=== PATIENT | male | born 1995 | race Caucasian/White ===

== ENCOUNTER 2017-03-13 18:32 | Emergency (ER) | payer OTHER ==
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
[2017-03-13] MEDS ORDERED: Silver Sulfadiazine 1% Crm 400 GM Jar TOP ONE (19:46)
[2017-03-13] MEDS ORDERED: Diphtheria,Pertussis(Acell),Tetanus Vaccine 0.5 ML SDV IM ONE (19:47)
[2017-03-13] MEDS ORDERED: Metoclopramide 10 MG/2 ML SDV IM ONE (20:45)
[2017-03-13] MEDS ORDERED: HYDROmorphone 1 MG/ML Syringe IM ONE (20:45)
[2017-03-13 22:22] VITALS: BP 135/61
--- NOTE | 2017-03-18 10:47 | CR ---
Right foot: Four views of the right foot were obtained. Soft tissue swelling is identified. Mildly comminuted fracture is identified within the proximal shaft and base of the third metatarsal. Nondisplaced fracture is noted within the base of the second metatarsal. No additional fracture is definitely appreciated. Impression: 1. Fractures within the second and third metatarsals as described above. 2. Soft tissue swelling. Diagnostic code #3
--- NOTE | 2017-03-18 10:47 | CR ---
Right ankle: Four views of the right ankle were obtained. Comparison: No previous study. Ankle mortise is symmetric. Fractures are partially visualized within the third and second metatarsals. No additional fracture or other bony abnormality is appreciated. Impression: 1. Metatarsal fractures are partially seen. Nothing acute is seen within the right ankle. Diagnostic code #3
== END 2017-03-13 22:12 | disposition home or self-care (01) ==
LOC: JD.ED 18:32
DX: S92.331A Displaced fracture of third metatarsal bone, right foot, initial encounter for closed fracture (principal); S92.324A Nondisplaced fracture of second metatarsal bone, right foot, initial encounter for closed fracture; S90.01XA Contusion of right ankle, initial encounter; S50.311A Abrasion of right elbow, initial encounter; S90.511A Abrasion, right ankle, initial encounter; S80.211A Abrasion, right knee, initial encounter; S20.412A Abrasion of left back wall of thorax, initial encounter; S20.411A Abrasion of right back wall of thorax, initial encounter; Z23 Encounter for immunization; V86.59XA Driver of other special all-terrain or other off-road motor vehicle injured in nontraffic accident, initial encounter
CPT/HCPCS: 29515; 73610; 73630; 90471; 90715; 96372; 99284; A9270; J1170; J2765

== ENCOUNTER 2018-08-06 19:48 | Emergency (ER) | payer BC, OTHER ==
[2018-08-06 19:59] VITALS: BP 151/81
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
[2018-08-06] MEDS ORDERED: predniSONE 20 MG Tab PO ONE (21:47)
[2018-08-06] MEDS ORDERED: Orphenadrine 100 MG Tab.ER PO STA (21:47)
== END 2018-08-06 22:04 | disposition home or self-care (01) ==
LOC: JD.ED 19:48
DX: G56.03 Carpal tunnel syndrome, bilateral upper limbs (principal)
CPT/HCPCS: 36415; 80053; 83735; 84443; 85025; 99284; A9270

== ENCOUNTER 2018-08-12 14:42 | Emergency (ER) | payer BC ==
[2018-08-12 15:07] VITALS: BP 120/68
--- NOTE | 2018-08-12 16:27 | MR ---
MRI cervical spine Technique: Gradient echo axial images were obtained from above the C2-C3 disc inferiorly to the C7-T1 disc. T1 and T2 weighted sagittal images were obtained. Comparison: No prior cervical spine imaging. Findings: Vertebral body heights and disc spaces are preserved. Very slight posterior disc bulging at C2-C3 and C3-C4 is noted. Mild disc bulging is seen at T2-T3. No central canal stenosis or neural foraminal stenosis is seen. Cervical cord shows no abnormal signal or mass. Impression: 1. Slight degenerative change as noted above. Diagnostic code #2
--- NOTE | 2018-08-12 19:27 | EDM.PDOC ---
ED HPI GENERAL MEDICAL PROBLEM - General Chief Complaint: Neurological Problem Stated Complaint: BOTH HANDS TINGLING/NUMB Time Seen by Provider: 08/12/18 15:05 Source of Information: Reports: Patient History Limitations: Reports: No Limitations - History of Present Illness INITIAL COMMENTS - FREE TEXT/NARRATIVE: The patient presents with bilateral numbness and tingling of both hands. He also has some weakness bilateral and shaking of his thumb. This all started about 3 weeks ago after he was on a snowmobiling trip. He says he does use his hands a lot at work. He is a heavy duty truck mechanic. He has no other symptoms like fever, chills, cough, chest pain, shortness of breath, abdominal pain, nausea and vomiting. He has no pain in his neck and did not hurt his neck. He was evaluated here by [facility]. Labs looked good and he was diagnosed with bilateral carpal tunnel syndrome. He was given cock up splints and steroids. He said they did not help. He went to his chiropractor and he did an adjustment and that did not help. [facility] and he said they laughed about the diagnosis and recommended he come here and get an MRI. He is frustrated when he talks to my nurse. He says he needs to work. He is not as frustrated when he talks to me he just is not convinced he has carpal tunnel syndrome. Onset: Gradual Duration: Week(s): (3) Location: Reports: Upper Extremity, Left, Upper Extremity, Right Quality: Reports: Ache Severity: Moderate Improves with: Reports: None Worsens with: Reports: None Associated Symptoms: Reports: No Other Symptoms - Related Data Allergies Allergy/AdvReac Type Severity Reaction Status Date / Time No Known Allergies Allergy Verified 08/06/18 19:59 Home Meds: Home Meds . [No Known Home Meds] 08/12/18 [History] Past Medical History Musculoskeletal History: Reports: Other (See Below) Other Musculoskeletal History: ribs, fingers, toes, collarbone Neurological History: Reports: Concussion - Past Surgical History GI Surgical History: Reports: Appendectomy Musculoskeletal Surgical History: Reports: Other (See Below) Social & Family History - Family History Family Medical History: Noncontributory - Tobacco Use Smoking Status *Q: Current Every Day Smoker Years of Tobacco use: 8 Packs/Tins Daily: 0.2 - Caffeine Use Caffeine Use: Reports: Coffee - Recreational Drug Use Recreational Drug Use: No - Living Situation & Occupation Living situation: Reports: Single Occupation: Employed ED ROS GENERAL - Review of Systems Review Of Systems: See Below Constitutional: Reports: No Symptoms HEENT: Reports: No Symptoms Respiratory: Reports: No Symptoms Cardiovascular: Reports: No Symptoms Endocrine: Reports: No Symptoms GI/Abdominal: Reports: No Symptoms : Reports: No Symptoms Musculoskeletal: Reports: Other (Bilateral arm pain, numbness and weakness) Neurological: Reports: Numbness (hands), Weakness (hands) ED EXAM, NEURO - Physical Exam Exam: See Below Exam Limited By: No Limitations General Appearance: Alert, No Apparent Distress Ears: Normal External Exam Nose: Normal Inspection Head Exam: Atraumatic, Normocephalic Neck: Normal Inspection, Supple, Non-Tender Respiratory/Chest: No Respiratory Distress, Lungs Clear, Normal Breath Sounds Cardiovascular: Regular Rate, Rhythm, No Edema, No Murmur GI/Abdominal: Soft, Non-Tender, No Organomegaly, No Mass Neurological: Alert, Oriented x 3, Other (Decreased sensation to both hands. Tingling in his hand when I tap on the median nerve to both hands. More numbness and tingling when I flex both wrists. He can bend at the wrist, touch thumb to little finger and spread his fingers.) Course - Vital Signs Last Recorded V/S: Last Vital Signs Temp 99.4 F 08/12/18 15:04 Pulse 62 08/12/18 15:04 Resp 20 08/12/18 15:04 BP 120/68 08/12/18 15:04 Pulse Ox 100 08/12/18 15:04 - Re-Assessments/Exams Free Text/Narrative Re-Assessment/Exam: 08/12/18 19:30 It appears he does have carpal tunnel syndrome. I was fortunate enough to get an MRI of his neck and it does show some mild degenerative changes but no other problems that would explain his symptoms. I feel he does have bilateral carpal tunnel syndrome. I recommend he wear the splints and follow up with Dr Mane. He should also get some rest. It does not sound like he can do that. Departure - Departure Time of Disposition: 19:35 Disposition: Home, Self-Care 01 Condition: Good Clinical Impression: Carpal tunnel syndrome Qualifiers: Laterality: bilateral Qualified Code(s): G56.03 - Carpal tunnel syndrome, bilateral upper limbs - Discharge Information *PRESCRIPTION DRUG MONITORING PROGRAM REVIEWED*: No *COPY OF PRESCRIPTION DRUG MONITORING REPORT IN PATIENT HERB: No Referrals: Therese Salomon MD [Primary Care Provider] - Suraj Mane MD [Physician] - 1 Week Additional Instructions: Wear the splints at night and during that day. Try to rest your arms as much as you can for the next couple of weeks. Follow up with Dr Maen. Please return if you are worse.
== END 2018-08-12 16:00 | disposition home or self-care (01) ==
LOC: JD.ED 14:42
DX: G56.03 Carpal tunnel syndrome, bilateral upper limbs (principal); F17.210 Nicotine dependence, cigarettes, uncomplicated
CPT/HCPCS: 72141; 72141-26; 99284-25

== ENCOUNTER 2019-01-13 18:09 | Emergency (ER) | payer BC | END 2019-01-13 18:44 | disposition left against medical advice (07) | LOC: JD.ED 18:09 | DX: Z53.21 Procedure and treatment not carried out due to patient leaving prior to being seen by health care provider (principal) ==

== ENCOUNTER 2019-10-02 06:19 | Day surgery (SDC) | payer BC, OTHER ==
[~2019-10-02 06:19] MED LIST: Lactated Ringers 1,000 ML IV SCH; Lidocaine 1%/Sod Bicarbonate in NS 8.4% 1 ML Syringe IDERM PRN; Sodium Chloride 0.9% 10 ML Syringe FLUSH PRN
[2019-10-02] MEDS ORDERED: Propofol 200 MG/20 ML SDV ONE ×2 (06:31→07:33)
[2019-10-02] MEDS ORDERED: fentaNYL 100 MCG/2 ML SDV ONE (06:32)
[2019-10-02] MEDS ORDERED: Midazolam 1 MG/ML 2 ML SDV ONE ×2 (06:32→07:15)
[2019-10-02] MEDS ORDERED: Bupivacaine 0.25% 10 ML SDV ONE (06:45)
--- NOTE | 2019-10-02 06:46 | PCM.PREANE ---
Preanesthetic Assessment - Procedure Proposed Procedure: bilateral carpal tunnel - Anesthesia/Transfusion/Family Hx Anesthesia History: Prior Anesthesia Without Reaction Family History of Anesthesia Reaction: No Transfusion History: No Prior Transfusion(s) - Review of Systems General: No Symptoms Pulmonary: No Symptoms Cardiovascular: No Symptoms Gastrointestinal: No Symptoms Neurological: No Symptoms Other: Reports: None - Physical Assessment NPO Status Date: 10/01/19 NPO Status Time: 23:55 Vital Signs: 110/82 65 99% 16 97.9 Height: 5 ft 11 in Weight: 75.659 kg ASA Class: 2 Mental Status: Alert & Oriented x3 Airway Class: Mallampati = 1 Dentition: Reports: Normal Dentition Thyro-Mental Finger Breadths: 3 Mouth Opening Finger Breadths: 3 ROM/Head Extension: Full Lungs: Clear to Auscultation, Normal Respiratory Effort Cardiovascular: Regular Rate, Regular Rhythm - Lab Values: Laboratory Last Values MRSA (PCR) Negative 09/22/19 13:12 - Allergies Allergies/Adverse Reactions: Allergies Allergy/AdvReac Type Severity Reaction Status Date / Time No Known Allergies Allergy Verified 09/29/19 11:33 - Blood Blood Available: No - Acknowledgements Anesthesia Type Planned: MAC Pt an Appropriate Candidate for the Planned Anesthesia: Yes Alternatives and Risks of Anesthesia Discussed w Pt/Guardian: Yes Pt/Guardian Understands and Agrees with Anesthesia Plan: Yes PreAnesthesia Questionnaire - Past Health History Medical/Surgical History: Denies Medical/Surgical History HEENT History: Reports: Allergic Rhinitis Cardiovascular History: Reports: None Respiratory History: Reports: None Gastrointestinal History: Reports: GERD Genitourinary History: Reports: None CLOTH TESTER History: Reports: None Musculoskeletal History: Reports: Other (See Below) Neurological History: Reports: Concussion Psychiatric History: Reports: None Endocrine/Metabolic History: Reports: None Hematologic History: Reports: None Immunologic History: Reports: None Oncologic (Cancer) History: Reports: None Dermatologic History: Reports: None - Past Surgical History Head Surgeries/Procedures: Reports: None HEENT Surgical History: Reports: None Cardiovascular Surgical History: Reports: None GI Surgical History: Reports: Appendectomy, Hernia, Inguinal Female Surgical History: Reports: None Male Surgical History: Reports: None Endocrine Surgical History: Reports: None Neurological Surgical History: Reports: None Musculoskeletal Surgical History: Reports: Other (See Below) Oncologic Surgical History: Reports: None Dermatological Surgical History: Reports: None - SUBSTANCE USE Tobacco Use Within Last Twelve Months: Snuff/Dip Second Hand Smoke Exposure: No Days Per Week of Alcohol Use: 1 (socially) Recreational Drug Use History: No - HOME MEDS Home Medications: Home Meds Acetaminophen/HYDROcodone [[place] 325-5 MG] 1 - 2 tab PO Q6H PRN #15 tablet 10/01 [Rx] - CURRENT (IN HOUSE) MEDS Current Meds: Current Medications Lactated Ringer's (Ringers, Lactated) 1,000 mls @ 125 mls/hr IV ASDIRECTED BAILEE Stop: 10/02/19 23:00 Lidocaine/Sodium Bicarbonate (Buffered Lidocaine 1% In Ns 8.4%) 0.25 ml IDERM ONETIME PRN PRN Reason: Prior to IV Start Stop: 10/02/19 18:00 Sodium Chloride (Saline Flush) 10 ml FLUSH ASDIRECTED PRN PRN Reason: Keep Vein Open Stop: 10/02/19 18:00 Discontinued Medications Fentanyl (Sublimaze) Confirm Administered Dose 100 mcg .ROUTE .STK-MED ONE Stop: 10/02/19 06:33 Midazolam HCl (Versed 1 Mg/Ml) Confirm Administered Dose 2 mg .ROUTE .STK-MED ONE Stop: 10/02/19 06:33 Propofol (Diprivan 20 Ml) Confirm Administered Dose 400 mg .ROUTE .STK-MED ONE Stop: 10/02/19 06:32
[2019-10-02] MEDS: Bupivacaine 0.25% 10 ML SDV ONE ×2 (07:28→07:36)
[2019-10-02] MEDS: Lidocaine 1% 30 ML SDV ONE ×2 (07:28→07:36)
[2019-10-02] MEDS ORDERED: Ketorolac 30 MG/ML SDV ONE (07:31)
--- NOTE | 2019-10-02 08:06 | PCM48HPAN ---
Post Anesthesia Note - EVALUATION WITHIN 48HRS OF ANESTHETIC Vital Signs in Normal Range: Yes Patient Participated in Evaluation: Yes Respiratory Function Stable: Yes Airway Patent: Yes Cardiovascular Function Stable: Yes Hydration Status Stable: Yes Pain Control Satisfactory: Yes Nausea and Vomiting Control Satisfactory: Yes Mental Status Recovered: Yes Vital Signs: Last Vital Signs Temp 97.9 F 10/02/19 06:25 Pulse 65 10/02/19 06:25 Resp 16 10/02/19 06:25 BP 110/82 10/02/19 06:25 Pulse Ox 99 10/02/19 06:25 135/84 98% 62 16 97.5
[2019-10-02 08:23] VITALS: PULSE 64
[2019-10-02] MEDS ORDERED: Acetaminophen/HYDROcodone 325-5 MG Tab PO PRN (09:04)
[2019-10-02 09:20] VITALS: BP 105/64
--- NOTE | 2019-10-05 06:56 | PCM.OPNOTE ---
- General Post-Op/Procedure Note Date of Surgery/Procedure: 10/02/19 Operative Procedure(s): bilateral carpal tunnel release Pre Op Diagnosis: bilateral median nerve compression neuropathy Post-Op Diagnosis: Same Anesthesia Technique: Local, MAC Primary Surgeon: Suraj Mane Anesthesia Provider: Osbaldo Lemus Reproducer: Dilma Subramanian EBL in mLs: 5 Complications: None Condition: Good
--- NOTE | 2019-10-05 07:32 | OR ---
DATE OF OPERATION: 10/02/2019 SURGEON: Suraj Mane MD OPERATION PERFORMED: Bilateral carpal tunnel release. PREOPERATIVE DIAGNOSIS: Bilateral median nerve compression neuropathy. POSTOPERATIVE DIAGNOSIS: Bilateral median nerve compression neuropathy. ANESTHESIA: Local MAC. ANESTHESIA PROVIDER: Osbaldo Lemus CRNA. VIDEO PRODUCTION INTERN: Dilma Subramanian PA-C. ESTIMATED BLOOD LOSS: Less than 5 mL. COMPLICATIONS: None. CONDITION: Stable. DESCRIPTION OF PROCEDURE: The patient was identified in the preop holding area. Proper site was marked and identified by the surgeon. The patient was taken back to the operating theater where after adequate anesthesia, the patient's bilateral upper extremities was sterilely prepped and draped in the usual sterile fashion. OR time-out was performed. The patient did not receive antibiotics and it is not indicated for soft tissue hand procedure. At this time, the left upper extremity was exsanguinated and an Esmarch was used as a tourniquet on the forearm. At this time, using 1% lidocaine without epinephrine and 0.25% Marcaine without epinephrine, the palmar cutaneous branch of the median nerve was anesthetized and then the incisional site was anesthetized using [place] cardinal line and ulnar border of the fourth digit as reference. Once this had set up, an incision was made. Blunt dissection was taken down to the palmar cutaneous fascia. Palmar cutaneous fascia was incised with a [place] blade. At this time, the transverse carpal ligament was identified. A small rent was made in the transverse carpal ligament with a [place] blade under direct visualization. Resection of the transverse carpal ligament was done distally using tenotomy scissors making sure to stop short of the palmar arch. At this time, attention was turned proximally after it was found to be adequately released. Using the tenotomy scissors keeping the tips ulnar to protect the palmar cutaneous branch of the median nerve, the superficial forearm fascia as well as the transverse carpal ligament were resected proximally. It was found to be adequate release both proximally and distally. At this time, adequate saline was irrigated through the wound. 4-0 nylon sutures were used closure of the skin. Attention was turned to the right side and the same exact steps were done releasing the transverse carpal ligament in the same fashion and dressings were applied. The patient was placed in a sterile soft dressing and sent to PACU in stable condition. MMGILBERT /[id number] JORDIN
== END 2019-10-02 09:23 | disposition home or self-care (01) ==
LOC: JD.SDS 06:19
PROVIDERS: ATTEND Orthopaedic Surgery
DX: G56.03 Carpal tunnel syndrome, bilateral upper limbs (principal); M19.90 Unspecified osteoarthritis, unspecified site; K21.9 Gastro-esophageal reflux disease without esophagitis; F17.290 Nicotine dependence, other tobacco product, uncomplicated; Z90.49 Acquired absence of other specified parts of digestive tract; Z98.890 Other specified postprocedural states
CPT/HCPCS: 64721; 87641; A9270; J1885; J2001; J2250; J2704; J3010; J3490; J7120; 01810